=== PATIENT | male | born 1990 | race African-American/Black ===

== ENCOUNTER 2022-09-07 10:54 | Emergency (ER) | payer MEDICAID ==
[~2022-09-07] VITALS: Ht 188 cm; Wt 81.6 kg
--- NOTE | 2022-09-07 11:13 | NUR ---
DR CHEN AT BEDSIDE FOR EVAL
[2022-09-07] MEDS ORDERED: CEFTRIAXONE 500 MG VIAL ONE (11:18)
[2022-09-07] MEDS ORDERED: AZITHROMYCIN 250 MG TABLET ONE (11:18)
[2022-09-07] MEDS ORDERED: CEFTRIAXONE 500 MG VIAL IM ONE (11:30)
[2022-09-07] MEDS ORDERED: AZITHROMYCIN 250 MG TABLET PO ONE (11:30)
--- NOTE | 2022-09-07 11:31 | NUR ---
azithromycin po and rocephin im given l deltoid, abe well by pt.
--- NOTE | 2022-09-07 11:39 | NUR ---
Patient discharged to home in stable condition. Written and verbal after care instructions given. Patient verbalizes understanding of instruction.
[2022-09-07 11:40] VITALS: BP 128/80
== END 2022-09-07 11:41 | disposition home or self-care (01) ==
LOC: ER 11:00
DX: N34.2 Other urethritis (principal)
CPT/HCPCS: 99283; 96372; 87491; 87591; J0696